=== PATIENT | male | born 2000 | race Caucasian/White ===

== ENCOUNTER 2022-02-24 18:19 | Observation (INO) ==
[2022-02-24 18:59] LABS: Basophils # (auto) 0.03 K/uL (0-0.2); Basophils % (auto) 0.2 %; Eosinophils # (auto) 0.12 K/uL (0-0.50); Hematocrit (blood only) 43.8 % (40.1-51.0); Hemoglobin 15.4 g/dl (14.0-18.0); Immature Granulocytes # (auto) 0.03 K/uL (0.00-0.02); Immature Granulocytes % (auto) 0.2 %; Lymphocytes % (auto) 17.4 %; Mean Corpuscular Hemoglobin 30.1 pg (25.0-34.0); Mean Corpuscular Hgb Conc 35.2 g/dL (32.0-36.0); Mean Corpuscular Volume 85.7 fL (80.0-100.0); Mean Platelet Volume 11.4 fL (9.4-12.4); Monocytes # (auto) 0.93 K/uL (0.24-0.82); Monocytes % (auto) 7.7 %; Neutrophils # (auto) 8.85 K/uL (1.4-6.5); Neutrophils % (auto) 73.5 %; Platelet Count 243 K/uL (130-400); RDW Coefficient of Variation 13.2 % (11.5-14.5); RDW Standard Deviation 41.1 fL (36.4-46.3); Red Blood Count 5.11 M/uL (4.63-6.08); White Blood Count 12.06 K/ul (4.8-10.8)
[2022-02-24 19:23] LABS: Albumin Globulin Ratio 1.5 (0.9-2); Albumin Level 4.4 gm/dl (3.4-5.0); BUN Creatinine Ratio 18.5 (10-20); Bilirubin,Total 0.6 mg/dl (0.2-1.0); Calcium 9.4 mg/dl (8.5-10.1); Creatinine Clr Calc Pharmacy 136.9 ml/min; Est GFR (African American) 136.4 ml/min; Est GFR (Non-African American) 117.6 ml/min; Potassium 3.9 mmol/L (3.5-5.1); Total Protein 7.4 gm/dl (6.0-8.3)
--- NOTE | 2022-02-24 19:49 | Emergency Department Note ---
Impression & Plan Appendicitis, Abdominal pain ED Provider Note NAME: CARLA KEARNEY AGE: 21 SEX: M : 2000 ARRIVES VIA: Walk-In INFORMANT: Patient, ED PROVIDER(S): Shmuel Johnston MD Chief Complaint: Right lower quadrant pain HPI: Patient states that he developed right lower quadrant pain beginning around 330 this morning describes it as sharp and nonradiating. Patient denies any chest pain shortness of breath nausea or vomiting. Patient did not take anything for the pain at home. The patient thought that it may been some food poisoning as the patient had [place] salmon last evening. Patient denies any diarrhea. Patient states that it is well localized to the right lower quadrant seem to improve little bit this morning but worsened this afternoon. Patient states it is worse with movement or motion. Patient denies any alcohol or tobacco use. No drug use. Patient denies any falls or trauma ROS: See HPI for pertinent positives and negatives. A total of 10 systems were reviewed and otherwise negative. Past medical history: See below Surgical history: See below Social history: See below Physical Exam: GENERAL: NAD, wearing a mask, non-toxic. EYE EXAM: Normal conjunctiva. PERRL, no anisocoria and EOM's grossly intact w/o pain. NECK: Supple, no nuchal rigidity, no adenopathy, non-tender. No signs of meningismus. FROM of the neck with good chin to chest and neck extension. No stridor. LUNGS: Clear to auscultation. Normal chest wall mechanics. HEART: NSR, no MRG. ABDOMEN: Abdomen soft, right lower quadrant pain but not peritonitic, normo- active bowel sounds, no masses, no rebound or guarding. BACK: No CVA TTP. SKIN: No rashes and no bruising. UPPER EXTREMITIES: Upper extremities are grossly normal. LOWER EXTREMITIES: Grossly normal, no edema. NEURO EXAM: A&O x3, cranial nerves II-XII grossly intact, normal speech, moves all 4 extremities. Differential diagnoses: Appendicitis, testicular torsion, infections, diverticulitis, UTI, obstruction, mesenteric ischemia, aortic pathology, inflam matory bowel disease, renal colic, PUD, pancreatitis, biliary pathology, hernia, volvulus, constipation, as well as other pathologies. Course: Patient was seen and evaluated the bedside. Full history physical exam was performed. Imaging Studies: See Below Cardiac monitoring: An order was placed for continuous cardiac monitoring. The monitor shows a rate of 65 with sinus rhythm. MDM: Patient was seen due to concern for right lower quadrant pain. Blood work was obtained which showed a white count of 12 with a normal H&H and platelet count. Kidney function was unremarkable. He is lipase normal with normal urinalysis. Patient CT Abdo pelvis did show acute uncomplicated appendicitis. No abscess or pneumoperitoneum. No evidence of bowel obstruction. Patient was informed of the findings. Patient was ordered cefoxitin. I did speak with Megan De Luna PA-C and the patient was to be taken to the operating room with Dr. Sanz. Past Med/Surg History Medical History No pertinent past medical history Surgical History No pertinent past surgical history Social History Smoking Status: Never smoker Hx Alcohol Use: No Hx Substance Use: No current occupational status: student Feels Safe at Home: Yes Results & Data (ED) Vital Signs Vital Signs - 24 hr 02/24/22 18:35 02/24/22 19:27 02/24/22 19:30 Temperature 36.9 C Temperature Source Temporal Artery Scan Pulse Rate 70 64 59 L Pulse Rate from SpO2 Sensor 61 Respiratory Rate 16 20 20 Respiratory Effort / Characteristics Non-Labored Spontaneous Respiratory Depth Normal Blood Pressure 122/64 125/71 119/72 Blood Pressure Mean 83 89 87 Pulse Oximetry 96 97 96 Oxygen Delivery Method Room Air Room Air Room Air Sepsis Recent Fever Within 48 Hours No Sepsis New/Unexplained Change in Mental Status No Sepsis Action Taken by Nursing No Action Required 02/24/22 20:00 02/24/22 20:24 Temperature Temperature Source Pulse Rate 55 L 60 Pulse Rate from SpO2 Sensor Respiratory Rate 19 25 H Respiratory Effort / Characteristics Respiratory Depth Blood Pressure 122/68 137/78 Blood Pressure Mean 86 97 Pulse Oximetry 97 99 Oxygen Delivery Method Room Air Room Air Sepsis Recent Fever Within 48 Hours Sepsis New/Unexplained Change in Mental Status Sepsis Action Taken by [facility] Medications Current Medication List: was personally reviewed by me Laboratory Data Attestation: I reviewed the patient's lab results. Result diagrams: 02/24/22 18:49 02/24/22 18:49 Lab Results 02/24/22 02/24/22 02/24/22 Range/Units 18:49 18:49 20:32 WBC 12.06 H (4.8-10.8) K/ul RBC 5.11 (4.63-6.08) M/uL Hgb 15.4 (14.0-18.0) g/dl Hct 43.8 (40.1-51.0) % MCV 85.7 (80.0-100.0) fL MCH 30.1 (25.0-34.0) pg MCHC 35.2 (32.0-36.0) g/dL RDW Std Deviation 41.1 (36.4-46.3) fL RDW Coeff of Srinivas 13.2 (11.5-14.5) % Plt Count 243 (130-400) K/uL MPV 11.4 (9.4-12.4) fL Immature Gran % (Auto) 0.2 % Neut % (Auto) 73.5 % Lymph % (Auto) 17.4 % Mobile % (Auto) 7.7 % Eos % (Auto) 1.0 % Baso % (Auto) 0.2 % Neut # (Auto) 8.85 H (1.4-6.5) K/uL Lymph # (Auto) 2.10 (1.2-3.4) K/uL [place] # (Auto) 0.93 H (0.24-0.82) K/uL Eos # (Auto) 0.12 (0-0.50) K/uL Baso # (Auto) 0.03 (0-0.2) K/uL Immature Gran # (Auto) 0.03 H (0.00-0.02) K/uL Sodium 138 (136-145) mmol/L Potassium 3.9 (3.5-5.1) mmol/L Chloride 105 (98-107) mmol/L Carbon Dioxide 25 (21-32) mmol/L Anion Gap 8 (3-11) BUN 17 (6-23) mg/dl Creatinine 0.92 (0.6-1.4) mg/dl Est Cr Clr Drug Dosing 136.9 ml/min Est GFR ( Amer) 136.4 ml/min Est GFR (Non-Af Amer) 117.6 ml/min BUN/Creatinine Ratio 18.5 (10-20) Glucose 109 H (70-99(Fasting)) mg/dl Calcium 9.4 (8.5-10.1) mg/dl Total Bilirubin 0.6 (0.2-1.0) mg/dl AST 25 (13-39) U/L ALT 21 (7-52) U/L Alkaline Phosphatase 66 (34-104) U/L Total Protein 7.4 (6.0-8.3) gm/dl Albumin 4.4 (3.4-5.0) gm/dl Globulin 3.0 (2.5-4.0) gm/dl Albumin/Globulin Ratio 1.5 (0.9-2) Lipase 41 (11-82) U/L Urine Color Yellow Urine Appearance Clear (Clear) Urine pH 6.5 (4.5-7.5) Ur Specific [place] 1.025 (1.000-1.030) Urine Protein Negative (Negative) Urine Glucose (UA) Negative (Negative) Urine Ketones Negative (Negative) Urine Blood Negative (Negative) Urine Nitrite Negative (Negative) Urine Bilirubin Negative (Negative) Urine Urobilinogen Negative (Negative) Ur Leukocyte Esterase Negative (Negative) Administered Medications Discontinued Medications Ioversol (Optiray 350 100ml) 87 ml IV ONCE ONE Stop: 02/24/22 20:16 Last Admin: 02/24/22 20:16 Dose: 87 ml Documented By: [facility] Imaging Data Radiologist's Impression: Abdomen/Pelvis CT 02/24/22 19:[address] WITH IV CONTRAST CT DOSE: 458.09 mGy.cm HISTORY: Acute right lower quadrant abdominal pain RLQ pain, WBC 12 TECHNIQUE: Multiaxial CT images of the abdomen and pelvis were performed following the IV administration of 87 cc of Optiray, A dose lowering technique was utilized adhering to the principles of ALARA. COMPARISON STUDY: None. FINDINGS: The lung bases are clear. The liver, spleen, gallbladder, pancreas, kidneys, and adrenal glands are within normal limits. Tiny hiatal hernia. No bowel wall thickening or obstruction. The appendix is fluid-filled and dilated measuring up to 10 mm with mucosal hyperemia and mild periappendiceal stranding. Decompressed urinary bladder with wall thickening and perivesicular stranding. And trace free pelvic fluid. No suspicious lytic or blastic osseous lesions. IMPRESSION: 1. Acute appendicitis. No abscess or pneumoperitoneum. 2. No bowel obstruction. 3. Tiny hiatal hernia. ACT 112: Negative or not required by law. The above report was generated using voice recognition software. It may contain grammatical, syntax or spelling errors. Electronically signed by: Rufino Harmon M.D. 02/24/2022 8:32 PM Discharge Plan Visit Data Chief Complaint: Abdominal Pain Stated Complaint: POSSIBLE APPENDICITIS ED Provider: Shmuel Johnston Discharge Problem: Appendicitis, Abdominal pain Patient Disposition: Admitted As Inpatient Forms Stand Alone Forms: [facility] Referrals Referrals: PCP,NO [Physician] -
[2022-02-24] MEDS ORDERED: OPTIRAY 350 100ml IV ONE (20:15)
--- NOTE | 2022-02-24 20:34 | CT Scan Report ---
ABDOMEN AND PELVIS CT WITH IV CONTRAST CT DOSE: 458.09 mGy.cm HISTORY: Acute right lower quadrant abdominal pain RLQ pain, WBC 12 TECHNIQUE: Multiaxial CT images of the abdomen and pelvis were performed following the IV administrat ion of 87 cc of Optiray, A dose lowering technique was utilized adhering to the principles of ALARA. COMPARISON STUDY: None. FINDINGS: The lung bases are clear. The liver, spleen, gallbladder, pancreas, kidneys, and adrenal gl ands are within normal limits. Tiny hiatal hernia. No bowel wall thickening or obstruction. The appen martín is fluid-filled and dilated measuring up to 10 mm with mucosal hyperemia and mild periappendiceal stranding. Decompressed urinary bladder with wall thickening and perivesicular stranding. And trace free pelvic fluid. No suspicious lytic or blastic osseous lesions. IMPRESSION: 1. Acute appendicitis. No abscess or pneumoperitoneum. 2. No bowel obstruction. 3. Tiny hiatal hernia. ACT 112: Negative or not required by law. The above report was generated using voice recognition software. It may contain grammatical, syntax o r spelling errors. Electronically signed by: Rufino Harmon M.D. 02/24/2022 8:32 PM
[2022-02-24 20:53] LABS: Appearance Urine Clear (Clear); Bilirubin Urine Negative (Negative); Blood Urine Negative (Negative); Color Urine Yellow; Glucose Urine UA Negative (Negative); Ketones Urine Negative (Negative); Leukocyte Esterase Urine Negative (Negative); Nitrite Urine Negative (Negative); Protein Urine Negative (Negative); Specific Gravity Urine 1.025 (1.000-1.030); Urobilinogen Urine Negative (Negative); pH Urine 6.5 (4.5-7.5)
[2022-02-24] MEDS ORDERED: cefOXitin 2,000 MG/60 ML BAG IV STA (21:01)
--- NOTE | 2022-02-24 21:35 | History & Physical Report ---
Date of Service February 24, 2022 Assessment & Plan (1) Appendicitis: Plan: RLQ pain, leukocytosis and CT findings consistent with acute appendicitis. Case reviewed with Dr. Sanz, plan to proceed with laparoscopic appendectomy tonight. Risks of surgery reviewed with the patient including, but not limited to, bleeding, infection, injury to surrounding structures. Patient to continue IV cefoxitin. as above. clinically and radiographically c/w appendicitis. discussed options/risks ( bleeding/infection/injury to other organs/dvt/pe/mi/cva etc...). questions answered. will proceed with lap appendectomy tonight. pt agreeable. Acute appendicitis type: with localized peritonitis Appendicitis abscess presence: without abscess Appendicitis gangrene presence: without gangrene Appendicitis perforation presence: without perforation Appendicitis type: acute appendicitis Qualified Code(s): K35.30 - Acute appendicitis with localized peritonitis, without perforation or gangrene History of Present Illness Primary Care Provider: [facility] Yuri is being seen today for RLQ abdominal pain which started around 3:30AM this morning. He initially felt the pain was from eating bad salmon last night. He reports the pain is concentrated to the RLQ, radiates across his abdomen. He reports it is constant, but improved from when it initially began. Pain is aggravated by walking, pushing on his abdomen. He is nauseous, but still no vomiting. Upon presentation, the patient is afebrile at 36.9, with elevated white count at 12.06. CT of abd/pelvis demonstrates fluid-filled and dilated appendix measuring up to 10mm with mucosal hyperemia and mild periappendiceal stranding, consistent with acute appendicitis without abscess. Yuri denies CP, SOB, chills. He denies any chronic medical issues and is only an occasional smoker. He is currently being treated with IV cefoxitin. Past Med/Surg History Medical History No pertinent past medical history Surgical History No pertinent past surgical history Social History Smoking Status: Never smoker Hx Alcohol Use: No Hx Substance Use: No current occupational status: student Feels Safe at Home: Yes Review of Systems All systems reviewed & are unremarkable except as noted in HPI & below Physical Exam Physical Exam: Temp Pulse Resp BP Pulse Ox O2 Del Method 36.9 C 60 25 H 137/78 99 02/24/22 18:35 02/24/22 20:24 02/24/22 20:24 02/24/22 20:24 02/24/22 20:24 02/24/22 20:24 Constitutional: WD/WN, vitals as above Eyes: PERRL, conjunctivae normal, anicteric sclerae Respiratory: normal respiratory effort, lungs clear to auscultation Cardiovascular: RRR, no murmur, no edema Gastrointestinal (Abdomen): Inspection/Auscultation: abdomen normal to inspection and normal bowel sounds Percussion/Palpation: + abdomen tender (pain in RLQ with palpation throughout the abdomen ) and + guarding Musculoskeletal: no cyanosis or clubbing, extremities motor strength 5/5 Skin: no rashes, warm and dry Results & Data ([facility]) Vital Signs (Past 12 Hours) Vital Signs Temp Pulse Resp BP Pulse Ox O2 Del Method 02/24/22 20:24 60 25 H 137/78 99 Room Air 02/24/22 20:00 55 L 19 122/68 97 Room Air 02/24/22 19:30 59 L 20 119/72 96 Room Air 02/24/22 19:27 64 20 125/71 97 Room Air 02/24/22 18:35 36.9 C 70 16 122/64 96 Room Air Laboratory Results Abnormal lab results 02/24/22 02/24/22 Range/Units 18:49 18:49 WBC 12.06 H (4.8-10.8) K/ul Neut # (Auto) 8.85 H (1.4-6.5) K/uL [place] # (Auto) 0.93 H (0.24-0.82) K/uL Immature Gran # (Auto) 0.03 H (0.00-0.02) K/uL Glucose 109 H (70-99(Fasting)) mg/dl Diagnostic Findings ABDOMEN AND PELVIS CT WITH IV CONTRAST CT DOSE: 458.09 mGy.cm HISTORY: Acute right lower quadrant abdominal pain RLQ pain, WBC 12 TECHNIQUE: Multiaxial CT images of the abdomen and pelvis were performed following the IV administration of 87 cc of Optiray, A dose lowering technique was utilized adhering to the principles of ALARA. COMPARISON STUDY: None. FINDINGS: The lung bases are clear. The liver, spleen, gallbladder, pancreas, kidneys, and adrenal glands are within normal limits. Tiny hiatal hernia. No bowel wall thickening or obstruction. The appendix is fluid-filled and dilated m easuring up to 10 mm with mucosal hyperemia and mild periappendiceal stranding. Decompressed urinary bladder with wall thickening and perivesicular stranding. And trace free pelvic fluid. No suspicious lytic or blastic osseous lesions. IMPRESSION: 1. Acute appendicitis. No abscess or pneumoperitoneum. 2. No bowel obstruction. 3. Tiny hiatal hernia.
[2022-02-24] MEDS ORDERED: SUCCINYLCHOLINE 100MG/5ML SYR IV ONE (21:58)
[2022-02-24] MEDS ORDERED: MIDAZOLAM HCL 1 MG/ML 2ML VIAL ONE (21:58)
[2022-02-24] MEDS ORDERED: PROPOFOL IV EMULSION 10 MG/ML 20 ML VIAL IV ONE (21:58)
[2022-02-24] MEDS ORDERED: fentaNYL citrate 100 MCG/2 ML VIAL ONE ×2 (21:58→22:32)
[2022-02-24] MEDS ORDERED: EPINEPHrine INJ 1 MG/ML AMP ONE (22:06)
[2022-02-24] MEDS ORDERED: BUPIVACAINE 0.5 % 5 MG/1 ML MPF 30ML VIAL ONE (22:06)
--- NOTE | 2022-02-24 22:13 | Anesthesiology Consultation ---
Date of Service February 24, 2022 Assessment & Plan ASA [id number] Proposed Anesthesia Anesthesia Type: General Risk / Benefits Reviewed With: PT / POA / Parent / Guardian, Accepts Plan and Informed Consent Obtained History Surgery Operation Date: 02/24/22 22:00 Proposed Procedures p Laparoscopic Appendectomy - Bryon Sanz DO Height/Weight Height: 5 ft 9 in Weight: 86.183 kg NPO Date Last Intake of Fluids: 02/24/22 Time Last Intake of Fluids: 14:30 Date Last Intake of Solids: 02/24/22 Time Last Intake of Solids: 14:30 Past Medical History Medical History No pertinent past medical history Exercise / Class Metabolic Activity 1 > 8 Run/Swim/Ski/Tennis Past Surgical History Surgical History No pertinent past surgical history Past Anesthesia History No Hx of Anesthesia Complications and No Family Hx of Anesthesia Complications History of PONV No Hx of PONV and No Hx of Motion Sickness Social History Smoking Status: Never smoker Hx Alcohol Use: No Hx Substance Use: No Review of Systems denies fever/cough/ colds/ chest pain/ SOB/ PROMISE denies PROMISE Physical Exam Vital Signs Last Vital Signs Temp 36.9 C 02/24/22 18:35 Pulse 64 02/24/22 21:30 Resp 19 02/24/22 21:30 BP 143/81 H 02/24/22 21:30 Pulse Ox 99 02/24/22 21:30 O2 Del Method 02/24/22 21:30 ENMT Mouth: + chipped teeth (right front); no TMJ abnormality and no dentition abnormality Thyromental Distance: > or= 3.5 Finger Breadths Mallampati Class: II Neck neck extension not limited Respiratory normal respiratory effort; no respiratory distress Auscultation: lungs clear to auscultation bilaterally Cardiovascular Rate/Rhythm: regular rate and regular rhythm Neurologic moves all extremities Psychiatric Orientation: alert and oriented x 3 Testing Laboratory Results 02/24/22 18:49 02/24/22 18:49 Urine Color Yellow 02/24/22 20:32 Urine Appearance Clear (Clear) 02/24/22 20:32 Urine pH 6.5 (4.5-7.5) 02/24/22 20:32 Ur Specific [place] 1.025 (1.000-1.030) 02/24/22 20:32 Urine Protein Negative (Negative) 02/24/22 20:32 Urine Glucose (UA) Negative (Negative) 02/24/22 20:32 Urine Ketones Negative (Negative) 02/24/22 20:32 Urine Nitrite Negative (Negative) 02/24/22 20:32 Ur Leukocyte Esterase Negative (Negative) 02/24/22 20:32
[2022-02-24] MEDS ORDERED: ONDANSETRON INJ 2 MG/ML 2 ML VIAL IV PRN (22:16)
[2022-02-24] MEDS ORDERED: ePHEDrine sulfate 50 MG/ML AMP IV PRN (22:16)
[2022-02-24] MEDS ORDERED: ATROPINE SULFATE 0.1 MG/ML 10ML SYR IV PRN (22:16)
[2022-02-24] MEDS ORDERED: HYDROmorphone INJ 2 MG/ML SYR/VIAL IV PRN (22:16)
[2022-02-24] MEDS ORDERED: fentaNYL citrate 100 MCG/2 ML VIAL IV PRN (22:16)
[2022-02-24] MEDS ORDERED: Patient's ALLERGY Info needs ENTERED STA (22:20)
[2022-02-24] MEDS ORDERED: KETOROLAC 30 MG/ML VIAL ONE (22:41)
[2022-02-24] MEDS ORDERED: DEXAMETHASONE SOD INJ 4 MG/ML VIAL ONE (22:41)
[2022-02-24] MEDS ORDERED: ONDANSETRON INJ 2 MG/ML 2 ML VIAL ONE (22:41)
[2022-02-24] MEDS ORDERED: ROCURONIUM BROMIDE 10 MG/ML 5 ML VIAL IV ONE (22:52)
[2022-02-24] MEDS ORDERED: GLYCOPYRROLATE 0.2 MG/ML VIAL ONE (22:55)
[2022-02-24] MEDS ORDERED: NEOSTIGMINE METHYLSULFATE 1 MG/ML 10ML VIAL ONE (22:55)
--- NOTE | 2022-02-24 23:20 | Operative Report ---
PG Post Operative Report Pre & Post Diagnosis Operation Date: 02/24/22 22:00 Pre-Op Diagnosis: Appendicitis Post-Op Diagnosis: Appendicitis I identified the patient and participated in the time-out.: Yes Procedure Operation Date: 02/24/22 22:00 Actual Procedures p Laparoscopic Appendectomy - Bryon Sanz DO Surgeon Bryon Sanz DO Web Applications Programmer Junaid Alberto pa-c Estimated Blood Loss 10 Findings Consistent with Post-Op Diagnosis Specimens appendix Description of Procedure After informed consent was obtained the patient was taken to the operating room and placed in supine position. After successful intubation a Simpson catheter was placed and the left arm was tucked. I began by making a periumbilical incision with an 11 blade scalpel and carried this down through the soft tissue using electrocautery. The anterior rectus fascia was opened using electrocautery and 2 #0 Vicryl stay sutures were placed. The peritoneum was elevated using hemostats and incised under direct vision using a Metzenbaum scissor. A finger sweep was performed. A 12 mm Shine trocar was placed and the abdomen was insufflated to 18 mmHg. A laparoscope was inserted and the abdomen was examined in 360. A suprapubic 5 mm port and a left lower quadrant 12 mm port were placed under direct vision. The patient was air planed to the left as well as placed in a slight Trendelenburg position. We began by looking in the right lower quadrant. We were able to readily identify the appendix and it was grossly inflamed. It had not perforated. There is a small amount of purulent fluid in the right lower quadrant and the pelvis. We immediately irrigated and suctioned this out. I was able to use primarily blunt dissection to pull the a ppendix away from the right lower quadrant sidewall. I began by making a window in the mesentery of the appendix. I was then able to use a TSERING brown cartridge stapler to transect first the mesentery of the appendix followed by the appendix itself at its base with the cecum. It was then placed into an Endo Catch bag and removed from the camera port site. We thoroughly irrigated the right lower quadrant as well as the pelvis. There was adequate hemostasis. I ran the small bowel backwards from the terminal ileum for about 6 feet all of which was normal. All the peritoneal surfaces were normal. Small/ large bowel, liver, stomach etc. all appeared grossly normal. We did a final irrigation and then removed all the trochars and desufflated the abdomen. The fascia of the camera port as well as the left lower quadrant were closed using 0 Vicryl in [id number] fashion. Wounds were all irrigated and closed using 4-0 Monocryl. Marcaine was injected around them for postoperative analgesia and skin glue used as a dressing. The patient was awakened extubated and transferred to recovery in stable condition. My physician's assistant media planner was present through the entire case. She assisted with prepping the patient and helped with exposure for port placement, helped run the camera and helped with fascial/wound closure at the end of the procedure as well as dressing placement. I attest to the content of the Intraoperative Record and any orders documented therein. Any exceptions are noted below. I attest to the content of the Intraoperative Record and any orders documented therein. Any exceptions are noted below.
--- NOTE | 2022-02-24 23:41 | Anesthesiology Progress Note ---
Date of Service February 24, 2022 Anesthesia Post Procedure Vital Signs Vital Signs: Temp Pulse Pulse Resp BP BP Pulse Ox 02/24/22 23:39 36.5 C 76 16 130/70 95 02/24/22 23:29 36.5 C 96 H 18 132/74 95 02/24/22 21:30 64 19 143/81 H 99 02/24/22 21:00 52 L 21 132/54 L 97 02/24/22 20:30 60 20 133/66 98 02/24/22 20:24 60 25 H 137/78 99 02/24/22 20:00 55 L 19 122/68 97 02/24/22 19:30 59 L 20 119/72 96 02/24/22 19:27 64 20 125/71 97 02/24/22 18:35 36.9 C 70 16 122/64 96 O2 Del Method 02/24/22 23:39 Room Air 02/24/22 23:29 Room Air 02/24/22 21:30 Room Air 02/24/22 21:00 Room Air 02/24/22 20:30 Room Air 02/24/22 20:24 Room Air 02/24/22 20:00 Room Air 02/24/22 19:30 Room Air 02/24/22 19:27 Room Air 02/24/22 18:35 Room Air Pain Intensity Right Lower Abdomen: Pain Intensity: 0 Transfer of Care Handoff Completed per policy Notes Mental Status: alert / awake / arousable and participated in evaluation Patient Amnestic to Procedure: Yes Nausea / Vomiting: adequately controlled Pain: adequately controlled Airway Patency, RR, SpO2: stable & adequate BP & HR: stable & adequate Hydration State: stable & adequate Anesthetic Complications: no major complications apparent and Pt Satisfied with anesthetic care
[2022-02-25] MEDS ORDERED: ONDANSETRON INJ 2 MG/ML 2 ML VIAL IV PRN (00:18)
[2022-02-25] MEDS ORDERED: MoRPHine SULFATE 2 MG/ML CARP IV PRN (00:18)
[2022-02-25] MEDS ORDERED: MoRPHine SULFATE 4 MG/ML 1 ML CARP\\VIAL IV PRN (00:18)
[2022-02-25] MEDS ORDERED: LACTATED RINGER'S 1,000 ML IV SCH (00:18)
[2022-02-25] MEDS ORDERED: oxyCODONE HCL IR 5 MG TAB (IMMEDIATE RELEASE) PO PRN ×2 (00:18)
[2022-02-25] MEDS: ceFAZolin 1000MG 1,000 MG/7.5 ML SYR IV SCH ×2 (03:04→10:34)
[2022-02-25] MEDS: ACETAMINOPHEN 1,000 MG/100 ML VIAL IV SCH ×2 (03:04→10:34)
--- NOTE | 2022-02-25 04:00 | Surgery Progress Note ---
Date of Service February 25, 2022 Assessment & Plan (1) S/P laparoscopic appendectomy: Plan: S/P Lap Appy last evening 1. Pain well controlled, patient feels ready for d.c. Will increase diet from clear liquids to full in anticipation of AM discharge. 2. Post op activity restrictions and limitations were reviewed. He is aware Endocet was sent to [facility] pharmacy. He will call Gen Surg office to schedule post- op appointment. Admission and Anticipated Discharge Date Admission Date: February 25, 2022 Subjective Yuri is awake, resting comfortably in bed. He reports no discomfort. No N/V. VSS Physical Exam Physical Exam: abd soft, appropriately tender. incisions CDI, well approximated. minimal ecchymosis Results & Data ([facility]) Vital Signs (Past 12 Hours) Vital Signs Temp Pulse Pulse Pulse Resp BP BP 02/25/22 02:58 36.8 C 50 L 16 125/69 02/25/22 01:10 36.5 C 50 L 16 131/78 02/25/22 00:40 37 C 57 L 16 130/75 02/25/22 00:10 36.9 C 54 L 16 128/74 02/24/22 23:59 36.5 C 69 17 133/81 02/24/22 23:49 36.5 C 80 17 142/81 H 02/24/22 23:39 36.5 C 76 16 130/70 02/24/22 23:29 36.5 C 96 H 18 132/74 02/24/22 21:30 64 19 143/81 H 02/24/22 21:00 52 L 21 132/54 L 02/24/22 20:30 60 20 133/66 02/24/22 20:24 60 25 H 137/78 02/24/22 20:00 55 L 19 122/68 02/24/22 19:30 59 L 20 119/72 02/24/22 19:27 64 20 125/71 02/24/22 18:35 36.9 C 70 16 122/64 Pulse Ox O2 Del Method 02/25/22 02:58 96 Room Air 02/25/22 01:10 97 Room Air 02/25/22 00:40 96 Room Air 02/25/22 00:10 98 Room Air 02/24/22 23:59 96 Room Air 02/24/22 23:49 95 Room Air 02/24/22 23:39 95 Room Air 02/24/22 23:29 95 Room Air 02/24/22 21:30 99 Room Air 02/24/22 21:00 97 Room Air 02/24/22 20:30 98 Room Air 02/24/22 20:24 99 Room Air 02/24/22 20:00 97 Room Air 02/24/22 19:30 96 Room Air 02/24/22 19:27 97 Room Air 02/24/22 18:35 96 Room Air PG Care Time/CCT Total # of Minutes Spent Total Time Spent with Patient: Total time spent is greater than 50% in coordination of care (as documented) at patient's floor/unit and/or counseling patient: Coding Level of Care Code None Diagnoses S/P laparoscopic appendectomy Z90.49
--- NOTE | 2022-02-25 04:08 | Discharge Summary ---
Date of Service February 25, 2022 Admission HPI Per Admitting Provider Yuri is being seen today for RLQ abdominal pain which started around 3:30AM this morning. He initially felt the pain was from eating bad salmon last night. He reports the pain is concentrated to the RLQ, radiates across his abdomen. He reports it is constant, but improved from when it initially began. Pain is aggravated by walking, pushing on his abdomen. He is nauseous, but still no vomiting. Upon presentation, the patient is afebrile at 36.9, with elevated white count at 12.06. CT of abd/pelvis demonstrates fluid-filled and dilated appendix measuring up to 10mm with mucosal hyperemia and mild periappendiceal stranding, consistent with acute appendicitis without abscess. Yuri denies CP, SOB, chills. He denies any chronic medical issues and is only an occasional smoker. He is currently being treated with IV cefoxitin. Admission Exam Per Admitting Provider Gastrointestinal (Abdomen): Inspection/Auscultation: abdomen normal to inspection and normal bowel sounds Percussion/Palpation: + abdomen tender (pain in RLQ with palpation throughout the abdomen ) and + guarding Principal Diagnosis Acute Appendicitis Discharge Exam VSS. abd soft, appropriately tender. incisions CDI, well approximated. minimal ecchymosis Discharge Data Allergies Allergy/AdvReac Type Severity Reaction Status Date / Time No Known Allergies Allergy Unverified 02/25/22 00:39 Consultations 02/24/22 21:01 ED Decision to Admit Stat Procedures Performed Operation Date: 02/24/22 22:00 Actual Procedures p Laparoscopic Appendectomy - Bryon Sanz, Ordered Studies 02/24/22 19:52 CT abd pelvis IV con only Stat Hospital Course (1) S/P laparoscopic appendectomy: Patient presented to ED with history of RLQ abdominal pain. Labs and CT consistent with acute appendicitis. Patient was taken to the OR and underwent laparoscopics appendectomy with Dr. Sanz. Intraop findings include uncomplicated appendicitis. There were no complications. He was transferred to med/surg. POD#1 pain was well controlled and he was tolerating regular diet. He had no issues voiding. He was d/c home in stable condition, with instructions to follow-up in office. Total Time Total Time Spent Total Time Spent (In Minutes): 30 Total Time Includes: Examination of the Patient, Discharge Planning, Medication Reconciliation and Communication With Other Providers Discharge Plan Discharge Items Patient Disposition: Home - Self-Care Reason For Visit: ACUTE APPENDICITIS Discharge Diagnosis: s/p laparoscopic appendectomy Activity: As commented below Lifting: No more than 10 pounds Bathing Comment: may shower; no soaking in tubs/pools Exercise/Sports: Wait until after follow-up appointment Non-emergency contact: Surgeon Call non-emergency contact if: your pain is not controlled and you have a fever Follow-up/Referrals: Bryon Sanz DO [Surgeon] - 03/09/22 10:00 am (please call to schedule an appointment in clinic within 2 weeks) PCP,NO [Physician] - Diet: Regular Addtl Attending Provider Instructions: ACTIVITY RECOMMENDATIONS: __Normal activities _x_No bending, lifting or straining more than 10lbs until evaluated in the office __No driving __Driving allowed when you are off pain medications _x_Walking permitted __You should have help at home for ___ days DRESSINGS: _x_No dressings required __Keep dressings dry/in place until first office visit __Remove dressings ___ and leave dressings off __Apply ice ___ days __Remove dressings and reapply garment __Apply antibiotic ointment (Bacitracin, Neosporin, etc) to wounds 3-4 times/day for 10 days BATHING: __Keep dressings dry __Sponge bathing permitted _x_Showering permitted after discharge _x_No swimming, hot tubs or soaking in a tub MEDICATIONS: Resume previous medications unless instructed otherwise by your surgeon. __Do not use aspirin, Motrin, Advil or Ibuprofen as these may promote bleeding. Please use Tylenol. _x_Prescription(s) provided: Pain medication has been sent to the [facility] FOLLOW UP VISIT: Please call [phone] to schedule your post-op visit. If you do not require the narcotic Percocet for pain you may purchase plain Tylenol and Ibuprofen over the counter. Take per manufacturers instructions. Do not take Tylenol and Percocet together as they both contain acetaminophen and you should not exceed >3grams of Acetaminophen within a 24 hour time period. Pending Studies at Discharge: Yes Studies:: pathology Stand-Alone Forms: My [facility], Work/School Release Medications and DC Order Prescriptions: New oxycodone-acetaminophen [Endocet] 5-325 mg tablet 1 tab PO Q6H PRN (Reason: pain) Qty: 14 0RF Rx Instructions: initial therapy Dr. Segovia [id number] Discharge Orders: Discharge Order (Routine); Ordered 02/25/22 Ordered By: Addis Bob Admission Data Admit Date/Time: 02/25/22 00:49 Attending Provider: Bryon Sanz Admit Provider: Bryon Sanz Primary Care Provider: [facility] Other Providers: Bryon Sanz Coding Level of Care Code 79292 OBS Care - Discharge Diagnoses S/P laparoscopic appendectomy Z90.49
[2022-02-25] MEDS ORDERED: FLUARIX QUADRIVALENT 0.5 ML SYR IM ONE (06:00)
[2022-02-25 06:49] LABS: Hematocrit (blood only) 42.7 % (40.1-51.0); Hemoglobin 14.7 g/dl (14.0-18.0); Mean Corpuscular Hemoglobin 30.1 pg (25.0-34.0); Mean Corpuscular Hgb Conc 34.4 g/dL (32.0-36.0); Mean Corpuscular Volume 87.5 fL (80.0-100.0); Mean Platelet Volume 11.8 fL (9.4-12.4); Platelet Count 241 K/uL (130-400); RDW Standard Deviation 41.3 fL (36.4-46.3); Red Blood Count 4.88 M/uL (4.63-6.08); White Blood Count 13.25 K/ul (4.8-10.8)
[2022-02-25 07:25] LABS: Basophils # (auto) 0.01 K/uL (0-0.2); Basophils % (auto) 0.1 %; Immature Granulocytes # (auto) 0.03 K/uL (0.00-0.02); Immature Granulocytes % (auto) 0.2 %; Lymphocytes # (auto) 0.88 K/uL (1.2-3.4); Lymphocytes % (auto) 6.6 %; Monocytes # (auto) 0.17 K/uL (0.24-0.82); Monocytes % (auto) 1.3 %; Neutrophils # (auto) 12.16 K/uL (1.4-6.5); Neutrophils % (auto) 91.8 %; RBC Morphology Unremarkable
--- NOTE | 2022-02-25 08:05 | Surgery Progress Note ---
Date of Service February 25, 2022 Assessment & Plan (1) S/P laparoscopic appendectomy: Plan: s/p laparoscopic appendectomy patient is doing well, pain controlled. no nausea/vomiting advanced to regular diet this AM. if tolerates okay for discharge to home dispo instructions reviewed, f/u in clinic with Dr. stokes in 2 weeks Admission and Anticipated Discharge Date Admission Date: February 25, 2022 Subjective Patient says he is feeling well. Abdominal pain controlled. No nausea/vomiting. Voiding. Tolerated liquid diet. Physical Exam Physical Exam: awake/alert Gastrointestinal (Abdomen): Inspection/Auscultation: + abdominal surgical incision (c/d/i some expected ecchymosis) Percussion/Palpation: abdomen soft; abdomen nontender Results & Data ([facility]) Vital Signs (Past 12 Hours) Vital Signs Temp Pulse Pulse Pulse Resp BP BP 02/25/22 07:10 36.6 C 63 18 112/64 02/25/22 02:58 36.8 C 50 L 16 125/69 02/25/22 01:10 36.5 C 50 L 16 131/78 02/25/22 00:40 37 C 57 L 16 130/75 02/25/22 00:10 36.9 C 54 L 16 128/74 02/24/22 23:59 36.5 C 69 17 133/81 02/24/22 23:49 36.5 C 80 17 142/81 H 02/24/22 23:39 36.5 C 76 16 130/70 02/24/22 23:29 36.5 C 96 H 18 132/74 02/24/22 21:30 64 19 143/81 H 02/24/22 21:00 52 L 21 132/54 L 02/24/22 20:30 60 20 133/66 02/24/22 20:24 60 25 H 137/78 Pulse Ox O2 Del Method 02/25/22 07:10 97 Room Air 02/25/22 02:58 96 Room Air 02/25/22 01:10 97 Room Air 02/25/22 00:40 96 Room Air 02/25/22 00:10 98 Room Air 02/24/22 23:59 96 Room Air 02/24/22 23:49 95 Room Air 02/24/22 23:39 95 Room Air 02/24/22 23:29 95 Room Air 02/24/22 21:30 99 Room Air 02/24/22 21:00 97 Room Air 02/24/22 20:30 98 Room Air 02/24/22 20:24 99 Room Air PG Care Time/CCT Total # of Minutes Spent Total Time Spent with Patient: Total time spent is greater than 50% in coordination of care (as documented) at patient's floor/unit and/or counseling patient: Coding Level of Care Code None Diagnoses S/P laparoscopic appendectomy Z90.49
== END 2022-02-25 11:40 | disposition home or self-care (01) ==
LOC: ED 18:19 → 3N 21:39 → OR 21:39
DX: K35.80 Unspecified acute appendicitis